=== PATIENT | male | born 1965 | race Caucasian/White ===

== ENCOUNTER 2018-11-16 20:18 | Emergency (ER) | payer MEDICAID ==
[~2018-11-16] VITALS: Ht 170.2 cm; Wt 66.0 kg
[2018-11-16 21:17] LABS: CLARITY URINE TURBID (CLEAR); COLOR URINE YELLOW (YELLOW); KETONES URINE NEGATIVE (NEGATIVE); LEUKOCYTE ESTERASE URINE 3+ (NEGATIVE); NITRITE URINE NEGATIVE (NEGATIVE); OCCULT BLOOD URINE 1+ (NEGATIVE); PH URINE 5.5 (4.5-8.0); PROTEIN URINE 1+ (NEGATIVE); SPECIFIC GRAVITY URINE 1.009 (1.005-1.030)
[2018-11-17] MEDS ORDERED: SODIUM CHLORIDE 0.9% 1,000 ML IV ONE (01:16)
[2018-11-17] MEDS ORDERED: KETOROLAC 30MG/ML VIAL IV STA (01:16)
[2018-11-17] MEDS ORDERED: ONDANSETRON HCL 4MG/2ML INJ IV ONE (01:30)
[2018-11-17] MEDS ORDERED: DIAZEPAM 5 MG/ML 2ML CPJ IV ONE (01:30)
[2018-11-17 01:31] LABS: CHLORIDE 102 mEq/L (98-107)
[2018-11-17 01:32] LABS: BASOPHILS % 0.8 % (0.0-2.0); EOSINOPHILS % 0.8 % (0.0-5.0); HEMATOCRIT. 40.8 % (42.0-52.0); HEMOGLOBIN. 13.7 g/dL (14.0-18.0); LYMPHOCYTES % 15.3 % (20.0-50.0); MEAN CORPUSCULAR HEMOGLOBIN 30.4 pg (28.0-32.0); MEAN CORPUSCULAR VOLUME 90.8 fL (80.0-94.0); MEAN PLATELET VOLUME 7.8 fl (7.4-10.4); MONOCYTES % 9.6 % (2.0-8.0); NEUTROPHILS % 73.5 % (40.0-76.0); PLATELET 493 x1000/uL (130-400); RED BLOOD CELL COUNT 4.49 mill/uL (4.7-6.1); RED CELL DISTRIBUTION WIDTH 14.8 % (11.6-14.6)
[2018-11-17] MEDS ORDERED: CEFTRIAXONE 1 G PREMIX 50 ML IV ONE (02:15)
[2018-11-17] MEDS ORDERED: IOHEXOL-300 100 ML BOTTLE ONE (04:41)
[2018-11-17] MEDS ORDERED: LABETALOL 5MG/ML SYR 20 MG/4 ML SYRINGE IV ONE (04:45)
[2018-11-17 06:10] VITALS: BP 152/88
== END 2018-11-17 06:11 | disposition home or self-care (01) ==
LOC: ER 20:18
DX: N39.0 Urinary tract infection, site not specified (principal); K46.9 Unspecified abdominal hernia without obstruction or gangrene; F17.200 Nicotine dependence, unspecified, uncomplicated; F12.10 Cannabis abuse, uncomplicated; Z98.890 Other specified postprocedural states; Z93.3 Colostomy status
CPT/HCPCS: 36415; 74177; 80053; 81003; 85025; 87077; 87086; 87186; 96365; 96375; 99284; 99406; J0696; J1885; J2405; J3360; J3490; J7030; J7050; Q9967; Z7610